=== PATIENT | male | born 1995 | race Caucasian/White ===

== ENCOUNTER 2018-01-20 17:14 | Emergency (ER) | payer OTHER ==
[~2018-01-20] VITALS: Ht 193 cm; Wt 126.6 kg
[2018-01-20 17:23] VITALS: BP 132/67
--- NOTE | 2018-01-20 17:33 | NUR ---
TIMPLE AT BEDSIDE
--- NOTE | 2018-01-20 17:34 | NUR ---
22/M PRESENT TO ER C/O COLD SYMPTOMS x 3 DAYS. PT STATES HE HAS PRODUCTIVE COUGH. PT DENIES FEVER OR CHILLS. HX: NONE MEDS: OTC MUCINEX . PT STATES AT NIGHT I FELT CHEST TIGHTNESS, DENIES N/V/D; SKIN IS PINK/WARM/DRY; AAOX4 WITH EVEN AND STEADY GAIT; LUNGS CLEAR BL; HR EVEN AND REGULAR; PT WITH FEVER ONE DAY, PATIENT STATES PAIN OF 0/10 AT THIS TIME; PATIENT POSITIONED FOR COMFORT; HOB ELEVATED; BEDRAILS UP X2; BED DOWN.
[2018-01-20] MEDS ORDERED: ALBUTEROL SULFATE/IPRATROPIU 3 ML SOL IH ONE (17:40)
[2018-01-20] MEDS ORDERED: cefTRIAXone 1,000 MG in LIDOCAINE MPF 1% - **ER/OR** 2.1 ML IM ONE (17:40)
--- NOTE | 2018-01-20 17:49 | NUR ---
PT FOR XRAY VIA WHEELCHAIR
--- NOTE | 2018-01-20 17:57 | NUR ---
Respiratory Therapist at bedside for respiratory intervention.
[2018-01-20 18:22] VITALS: BP 136/83
--- NOTE | 2018-01-20 18:22 | NUR ---
Patient discharged with v/s stable. Written and verbal after care instructions given and explained. Patient alert, oriented and verbalized understanding of instructions. Ambulatory with steady gait. All questions addressed prior to discharge. ID band removed. Patient advised to follow up with PMD. Rx of PROAIR,ZITHROMAX,CODEINE PHOSPHATE,MEDROL given. Patient educated on indication of medication including possible reaction and side effects. Opportunity to ask questions provided and answered.
== END 2018-01-20 18:22 | disposition home or self-care (01) ==
LOC: MED 17:14
DX: J18.9 Pneumonia, unspecified organism (principal)
CPT/HCPCS: 71045; 94640; 96372; 99283; J0696; J2001; J7620

== ENCOUNTER 2021-06-18 19:33 | Emergency (ER) | payer OTHER ==
[~2021-06-18] VITALS: Ht 190.5 cm; Wt 147.4 kg
--- NOTE | 2021-06-18 19:55 | NUR ---
SEEN AND EXAMINED BY PA WITH ORDERS AND CARRIED OUT.
[2021-06-18 20:21] VITALS: BP 152/70
[2021-06-18 20:41] LABS: BASOPHILS % (AUTO) 0.5 % (0.0-2.0); EOSINOPHILS # (AUTO) 0.1 K/uL (0-0.4); EOSINOPHILS % (AUTO) 1.5 % (0.0-4.0); HEMATOCRIT 45.9 % (36-52); HEMOGLOBIN 15.7 g/dL (12.0-18.0); LYMPHOCYTES # (AUTO) 2.2 K/uL (2.0-11.5); LYMPHOCYTES % (AUTO) 23.8 % (20.5-51.1); MEAN CORPUSCULAR HEMOGLOBIN 30 pg (27-31); MEAN CORPUSCULAR HGB CONC 34 g/dL (33-37); MONOCYTES # (AUTO) 0.6 K/uL (0.8-1.0); MONOCYTES % (AUTO) 7.1 % (1.7-9.3); NEUTROPHILS # (AUTO) 6.1 K/uL (1.8-7.7); NEUTROPHILS % (AUTO) 67.1 % (42.2-75.2); PLATELET COUNT (AUTO) 219 K/uL (140-450); RED BLOOD CELL COUNT(AUTO) 5.21 MIL/uL (4.20-6.10); WHITE BLOOD COUNT (AUTO) 9.1 K/uL (4.8-10.8)
[2021-06-18 21:01] LABS: ALBUMIN 4.2 g/dL (3.4-5.0); ANION GAP 9.8 (8-16); CARBON DIOXIDE 29.6 mmol/L (21-32); POTASSIUM 3.4 mmol/L (3.5-5.1); TOTAL BILIRUBIN 1.1 mg/dL (0.0-1.0)
[2021-06-18] MEDS ORDERED: NAPR-54 PO (21:12)
--- NOTE | 2021-06-18 21:25 | NUR ---
ALL RESULTS BACK AND NOTED BY ERMD AND FOR D/C
[2021-06-18 21:30] VITALS: BP 138/70
== END 2021-06-18 21:30 | disposition home or self-care (01) ==
LOC: MED 19:33
DX: R10.9 Unspecified abdominal pain (principal); Z79.899 Other long term (current) drug therapy
CPT/HCPCS: 36415; 80053; 81002; 83690; 85025; 99283